=== PATIENT | female | born 1990 | race Caucasian/White ===

== ENCOUNTER 2022-12-09 15:37 | Emergency (ER) | payer SELFPAY | END 2022-12-09 18:19 | disposition home or self-care (01) | LOC: MW.ED 15:37 | DX: F31.9 Bipolar disorder, unspecified (principal); F20.9 Schizophrenia, unspecified; G40.909 Epilepsy, unspecified, not intractable, without status epilepticus; I50.9 Heart failure, unspecified; Z86.19 Personal history of other infectious and parasitic diseases; Z76.0 Encounter for issue of repeat prescription; Z32.02 Encounter for pregnancy test, result negative; Z88.0 Allergy status to penicillin; Z88.1 Allergy status to other antibiotic agents; Z88.8 Allergy status to other drugs, medicaments and biological substances; Z79.899 Other long term (current) drug therapy | CPT/HCPCS: 81025; 99282 ==

== ENCOUNTER 2022-12-25 20:46 | Observation (INO) | payer SELFPAY ==
[2022-12-25 22:00] LABS: CARBON DIOXIDE,CO2 24.9 mmol/L (21.0-32.0); POTASSIUM,K 3.7 mmol/L (3.5-5.1)
[2022-12-25] MEDS ORDERED: Sodium Chloride 0.9% 1,000 ML IV ONE (22:12)
[2022-12-25] MEDS ORDERED: HYDROmorphone 1 MG/ML Syringe IVPUSH ONE ×2 (22:12→23:10)
[2022-12-25] MEDS ORDERED: Ondansetron 4 MG/2 ML SDV IVPUSH ONE (22:12)
[2022-12-25] MEDS ORDERED: Dicyclomine 10 MG Cap PO ONE (22:13)
[2022-12-25] MEDS ORDERED: methylPREDNISolone Sodium Succinate 125 MG/2 ML SDV IVPUSH ONE (22:19)
[2022-12-26] MEDS ORDERED: Dicyclomine 10 MG Cap PO PRN (02:28)
[2022-12-26] MEDS: HYDROmorphone 1 MG/ML Syringe IVPUSH PRN ×2 (02:45→08:46)
[2022-12-26] MEDS: Ondansetron 4 MG/2 ML SDV IVPUSH PRN ×3 (02:45→18:29)
[2022-12-26] MEDS: Carvedilol 25 MG Tab PO SCH ×3 (02:45→21:41)
[2022-12-26] MEDS ORDERED: levETIRAcetam 500 MG Tab PO ONE (03:00)
[2022-12-26] MEDS: Sodium Chloride 0.9% 1,000 ML IV SCH ×3 (03:23→20:16)
[2022-12-26] MEDS: Dicyclomine 10 MG Cap PO PRN ×2 (06:39→23:50)
[2022-12-26 06:59] LABS: CARBON DIOXIDE,CO2 21.9 mmol/L (21.0-32.0); POTASSIUM,K 3.8 mmol/L (3.5-5.1)
[2022-12-26] MEDS: levETIRAcetam 500 MG Tab PO SCH ×2 (08:45→21:43)
[2022-12-26] MEDS: valACYclovir 500 MG Tab PO SCH (08:45)
[2022-12-26] MEDS: lamoTRIgine 100 MG Tab PO SCH (08:46)
[2022-12-26] MEDS ORDERED: Pantoprazole 40 MG in Sodium Chloride 0.9% 10 ML IVPUSH ONE (09:04)
[2022-12-26] MEDS: oxyCODONE 5 MG Tab PO PRN ×3 (11:26→23:48)
[2022-12-26] MEDS: methylPREDNISolone Sodium Succinate 40 MG/1 ML SDV IVPUSH SCH ×2 (11:28→22:48)
[2022-12-26] MEDS: ClonazePAM 0.5 MG Tab PO PRN ×2 (11:32→23:50)
[2022-12-27] MEDS: Sodium Chloride 0.9% 1,000 ML IV SCH (04:56)
[2022-12-27 06:47] LABS: CARBON DIOXIDE,CO2 23.9 mmol/L (21.0-32.0)
[2022-12-27] MEDS: Carvedilol 25 MG Tab PO SCH (08:45)
[2022-12-27] MEDS: levETIRAcetam 500 MG Tab PO SCH (08:45)
[2022-12-27] MEDS: valACYclovir 500 MG Tab PO SCH (08:46)
[2022-12-27] MEDS: lamoTRIgine 100 MG Tab PO SCH (08:47)
[2022-12-27] MEDS: oxyCODONE 5 MG Tab PO PRN (08:47)
[2022-12-27] MEDS: ClonazePAM 0.5 MG Tab PO PRN (11:01)
== END 2022-12-27 11:05 | disposition home or self-care (01) ==
LOC: MW.ED 20:46 → MW.MS 23:18
PROVIDERS: ADMIT Internal Medicine; ATTEND Internal Medicine
DX: K51.811 Other ulcerative colitis with rectal bleeding (principal); F41.9 Anxiety disorder, unspecified; F32.A Depression, unspecified; F20.9 Schizophrenia, unspecified; G40.909 Epilepsy, unspecified, not intractable, without status epilepticus; I50.9 Heart failure, unspecified; F17.210 Nicotine dependence, cigarettes, uncomplicated; Z88.1 Allergy status to other antibiotic agents; Z88.0 Allergy status to penicillin; Z88.2 Allergy status to sulfonamides; Z88.8 Allergy status to other drugs, medicaments and biological substances; Z79.899 Other long term (current) drug therapy; Z20.822 Contact with and (suspected) exposure to COVID-19
CPT/HCPCS: 36415; 80048; 80053; 81001; 81025; 82947; 85025; 87045; 87046; 87086; 87088; 87186; 87324; 87449; 87899; 96361; 96374; 96375; 96376; 99221; 99238; 99284; 99284-25; A9270-GY; C9113; G0378; J1170; J2405; J2920; J2930; J3490; J7030; U0002

== ENCOUNTER 2023-03-06 05:36 | Emergency (ER) | payer MEDICAID ==
[2023-03-06] MEDS ORDERED: LORazepam 2 MG/ML SDV IVPUSH ONE (05:54)
[2023-03-06] MEDS ORDERED: Sodium Chloride 0.9% 1,000 ML IV ONE (05:54)
[2023-03-06 06:46] LABS: BASOPHILS PERCENT AUTO 0.2 % (0.0-1.5); EOSINOPHILS ABSOLUTE AUTO 0.2 K/uL (0.0-0.7); EOSINOPHILS PERCENT AUTO 1.5 % (0.0-7.0); HEMATOCRIT 37.9 % (36.0-46.0); HEMOGLOBIN 13.4 g/dL (12.0-16.0); LYMPHOCYTES ABSOLUTE AUTO 2.2 K/uL (0.6-2.4); LYMPHOCYTES PERCENT AUTO 21.5 % (16.0-40.0); MEAN CORPUSCULAR HEMOGLOBIN 30.9 pg (27.0-32.0); MEAN CORPUSCULAR HGB CONC 35.4 g/dL (31.0-37.0); MEAN CORPUSCULAR VOLUME 87.3 fL (80.0-98.0); MONOCYTES ABSOLUTE AUTO 0.8 K/uL (0.0-0.8); MONOCYTES PERCENT AUTO 7.8 % (0.0-15.0); NRBC ABSOLUTE 0 K/uL; PLATELET COUNT,PLT 282 K/uL (150-400); RED BLOOD CELL COUNT 4.34 M/uL (4.30-5.90); WHITE BLOOD CELL COUNT,WBC 10.08 K/uL (4.0-11.0)
[2023-03-06 06:50] LABS: APPEARANCE,URINE CLEAR; BILIRUBIN,URINE NEGATIVE (NEGATIVE); COLOR,URINE YELLOW; GLUCOSE,URINE NEGATIVE (NEGATIVE); KETONES,URINE NEGATIVE (NEGATIVE); LEUKOCYTE ESTERASE,URINE TRACE (NEGATIVE); NITRITE,URINE NEGATIVE (NEGATIVE); OCCULT BLOOD,URINE NEGATIVE (NEGATIVE); PROTEIN,URINE NEGATIVE (NEGATIVE); UROBILINOGEN,URINE 0.2 EU/dL (<2.0)
[2023-03-06 07:00] LABS: AMPHETAMINES SCREEN, URINE NEGATIVE (CUTOFF=500); BARBITURATE SCREEN,URINE NEGATIVE (CUTOFF=200); BENZODIAZEPINES SCREEN,URINE NEGATIVE (CUTOFF=150); BUPRENORPHINE SCREEN,URINE NEGATIVE (CUTOFF=10); METHADONE SCREEN, URINE NEGATIVE (CUTOFF=200); METHAMPHETAMINES SCREEN, URINE PRESUMPTIVE POSITIVE (CUTOFF=500); OXYCODONE SCREEN,URINE NEGATIVE (CUT0FF=100); PCP SCREEN,URINE NEGATIVE (CUTOFF=25); PROPOXYPHENE SCREEN,URINE NEGATIVE (CUTOFF=300); THC SCREEN,URINE 20 NG/ML NEGATIVE (CUTOFF=50)
[2023-03-06 07:19] LABS: BACTERIA,URINE NOT SEEN (NEGATIVE); EPITHELIAL CELLS,URINE RARE (NONE-FEW); RBC,URINE 0-1 (0-2/HPF); WBC,URINE 0-1 (0-5/HPF)
[2023-03-06 07:26] LABS: A/G RATIO 1.2 (0.9-1.6); ALANINE AMINOTRANSFERASE,ALT 21 IU/L (14-63); ALBUMIN 3.8 g/dL (3.4-5.0); ALKALINE PHOSPHATASE 54 U/L (46-116); ASPARTATE AMNIOTRANSFERASE,AST 16 IU/L (15-37); BILIRUBIN TOTAL 0.2 mg/dL (0.2-1.0); BLOOD UREA NITROGEN,BUN 12 mg/dL (7.0-18.0); CALCIUM 8.8 mg/dL (8.5-10.1); CARBON DIOXIDE,CO2 21.7 mmol/L (21.0-32.0); CHLORIDE,CL 106 mmol/L (98-107); CREATININE 0.8 mg/dL (0.6-1.0); EST CRCL DRUG DOSING (CG) 92.53 mL/min; GLUCOSE RANDOM 93 mg/dL (74-106); MAGNESIUM 2.1 mg/dL (1.8-2.4); POTASSIUM,K 3.9 mmol/L (3.5-5.1); PROTEIN TOTAL,TP 7.1 g/dL (6.4-8.2); SODIUM,NA 138 mmol/L (136-145); TSH ULTRASENSITIVE 2.16 uIU/mL (0.36-3.74)
[2023-03-06 07:35] LABS: ESTIMATED GFR 102 mL/min (>60); ETHANOL BLOOD MEDICAL < 3.0 mg/dL
== END 2023-03-06 09:17 | disposition home or self-care (01) ==
LOC: MW.ED 05:36
DX: F15.90 Other stimulant use, unspecified, uncomplicated (principal); R07.89 Other chest pain; R06.02 Shortness of breath; I50.9 Heart failure, unspecified; Z88.2 Allergy status to sulfonamides; Z88.0 Allergy status to penicillin; Z88.1 Allergy status to other antibiotic agents; Z79.899 Other long term (current) drug therapy
CPT/HCPCS: 36415; 71045; 80053; 80305; 80307; 81001; 83735; 84443; 84484; 84703; 85025; 93005; 96361; 96374; 99285; J2060; J7030; 93010; 99284

== ENCOUNTER 2023-03-17 20:35 | Emergency (ER) | payer MEDICAID | END 2023-03-17 21:51 | disposition left against medical advice (07) | LOC: MW.ED 20:35 | DX: Z53.21 Procedure and treatment not carried out due to patient leaving prior to being seen by health care provider (principal) | CPT/HCPCS: 93005 ==

== ENCOUNTER 2023-04-15 12:41 | Emergency (ER) | payer SELFPAY ==
[2023-04-15 13:04] LABS: APPEARANCE,URINE CLEAR; BILIRUBIN,URINE NEGATIVE (NEGATIVE); COLOR,URINE YELLOW; GLUCOSE,URINE NEGATIVE (NEGATIVE); KETONES,URINE NEGATIVE (NEGATIVE); LEUKOCYTE ESTERASE,URINE TRACE (NEGATIVE); NITRITE,URINE NEGATIVE (NEGATIVE); OCCULT BLOOD,URINE SMALL (NEGATIVE); PROTEIN,URINE NEGATIVE (NEGATIVE)
[2023-04-15 13:24] LABS: BACTERIA,URINE FEW (NEGATIVE); EPITHELIAL CELLS,URINE OCCASIONAL (NONE-FEW)
[2023-04-15] MEDS ORDERED: Ketorolac 60 MG/2 ML SDV IM ONE (13:35)
[2023-04-15 13:41] LABS: BASOPHILS PERCENT AUTO 0.1 % (0.0-1.5); EOSINOPHILS ABSOLUTE AUTO 0.2 K/uL (0.0-0.7); HEMATOCRIT 40.4 % (36.0-46.0); HEMOGLOBIN 13.5 g/dL (12.0-16.0); LYMPHOCYTES ABSOLUTE AUTO 1.6 K/uL (0.6-2.4); LYMPHOCYTES PERCENT AUTO 23.2 % (16.0-40.0); MEAN CORPUSCULAR HEMOGLOBIN 31.7 pg (27.0-32.0); MEAN CORPUSCULAR HGB CONC 33.4 g/dL (31.0-37.0); MEAN CORPUSCULAR VOLUME 94.8 fL (80.0-98.0); MONOCYTES ABSOLUTE AUTO 0.7 K/uL (0.0-0.8); MONOCYTES PERCENT AUTO 10.1 % (0.0-15.0); NEUTROPHILS ABSOLUTE AUTO 4.3 K/uL (1.4-5.7); NEUTROPHILS PERCENT AUTO 63.6 % (48.0-80.0); PLATELET COUNT,PLT 263 K/uL (150-400); RED BLOOD CELL COUNT 4.26 M/uL (4.30-5.90); WHITE BLOOD CELL COUNT,WBC 6.73 K/uL (4.0-11.0)
[2023-04-15 14:02] LABS: ALBUMIN 3.2 g/dL (3.4-5.0); BILIRUBIN TOTAL 0.7 mg/dL (0.2-1.0); CALCIUM 8.8 mg/dL (8.5-10.1); CARBON DIOXIDE,CO2 24.4 mmol/L (21.0-32.0); CREATININE 0.8 mg/dL (0.6-1.0); EST CRCL DRUG DOSING (CG) 96.26 mL/min; PROTEIN TOTAL,TP 6.5 g/dL (6.4-8.2)
[2023-04-16 04:59] LABS: AMPHETAMINES SCREEN, URINE NEGATIVE (CUTOFF=500); BARBITURATE SCREEN,URINE NEGATIVE (CUTOFF=200); BENZODIAZEPINES SCREEN,URINE NEGATIVE (CUTOFF=150); BUPRENORPHINE SCREEN,URINE NEGATIVE (CUTOFF=10); METHADONE SCREEN, URINE NEGATIVE (CUTOFF=200); METHAMPHETAMINES SCREEN, URINE NEGATIVE (CUTOFF=500); OXYCODONE SCREEN,URINE NEGATIVE (CUT0FF=100); PCP SCREEN,URINE NEGATIVE (CUTOFF=25); PROPOXYPHENE SCREEN,URINE NEGATIVE (CUTOFF=300); THC SCREEN,URINE 20 NG/ML NEGATIVE (CUTOFF=50)
== END 2023-04-15 16:41 | disposition home or self-care (01) ==
LOC: MW.ED 12:41
DX: G56.22 Lesion of ulnar nerve, left upper limb (principal); N30.01 Acute cystitis with hematuria; M54.50 Low back pain, unspecified; R74.01 Elevation of levels of liver transaminase levels; N20.0 Calculus of kidney; Z88.0 Allergy status to penicillin; Z88.1 Allergy status to other antibiotic agents
CPT/HCPCS: 36415; 74176; 80053; 80305; 81001; 81025; 85025; 87086; 96372; 99284; J1885; 87088; 87186; 99283